=== PATIENT | female | born 1985 | race Caucasian/White ===

== ENCOUNTER 2019-08-29 09:49 | Outpatient (CLI) | payer OTHER ==
--- NOTE | 2019-08-29 16:53 | Ultrasound Report ---
Reason: TEST POSITIVE Procedure Date: 08/29/2019 Accession Number: [id number] / [id number] Procedure: US - OB First Trimester CPT Code: Final Report FULL RESULT: EXAM: FIRST TRIMESTER OBSTETRIC ULTRASOUND (Less than 11 weeks) EXAM DATE: 08/29/2019 10:46 AM. CLINICAL HISTORY: TEST POSITIVE. LMP: 07/02/2019. COMPARISONS: None. TECHNIQUE: Transabdominal and transvaginal ultrasound examination with static image documentation. CLINICAL DATES: EGA 8 weeks 2 days with TRICIA 04/07/2020 based on LMP. ASSESSMENT: Gestational Sac: Single intrauterine. Mean gestational sac diameter: 14.9 mm = 6 weeks 2 days. Embryo: CRL (crown-rump length) 2.5 mm = 5 weeks 6 days. Cardiac activity: Not visible at this time. Yolk sac: Not visible. Amniotic fluid: Not accurately assessed at this gestational age. Early placenta: Not visible at this gestational age. Other: No perigestational fluid collection demonstrated. MATERNAL STRUCTURES: Uterus: . Unremarkable. Cervix: Closed. Right Ovary/Adnexa: The ovary measures 3.6 x 3.4 x 3.2 cm, volume 20.4 cc. There is a dominant cyst measuring 2.7 x 2.5 x 2.5. Left Ovary/Adnexa: The ovary measures 2.5 x 1.6 x 2.9 cm, volume 6.1 cc. Unremarkable. Free Fluid: None. Other: None. IMPRESSION: 1. Intrauterine gestational sac with pole. No cardiac activity identified at this time, however the crown-rump length measures 2.5 mm and cardiac activity is not always visible by ultrasound at this age. There is a discordance between the ultrasound age of 5 weeks 6 days by crown-rump length and the clinical age of 8 weeks 2 days by LMP. This exam does not differentiate normal viable intrauterine from blighted ovum given early age. [facility]
== END 2019-08-29 09:50 | disposition home or self-care (01) ==
LOC: DI 09:49
PROVIDERS: ATTEND Obstetrics & Gynecology
DX: Z32.01 Encounter for pregnancy test, result positive (principal)
CPT/HCPCS: 76801

== ENCOUNTER 2019-09-03 10:43 | Outpatient (CLI) | payer OTHER ==
[2019-09-03 11:47] LABS: HB2 TOTAL 13.7 g/dL; HEMOGLOBIN A1C 0.52 g/dL; HEMOGLOBIN A1C % 5.6 % (4.6-6.2)
== END 2019-09-03 10:44 | disposition home or self-care (01) ==
LOC: LAB 10:43
PROVIDERS: ATTEND Obstetrics & Gynecology
DX: O20.0 Threatened abortion (principal); Z3A.00 Weeks of gestation of pregnancy not specified
CPT/HCPCS: 36415; 83036; 84702; 86900; 86901

== ENCOUNTER 2019-09-05 10:01 | Outpatient (CLI) | payer OTHER | END 2019-09-05 10:02 | disposition home or self-care (01) | LOC: LAB 10:01 | PROVIDERS: ATTEND Obstetrics & Gynecology | DX: O20.0 Threatened abortion (principal); Z3A.00 Weeks of gestation of pregnancy not specified | CPT/HCPCS: 36415; 84702 ==